=== PATIENT | male | born 1950 | race Caucasian/White ===

== ENCOUNTER 2020-12-20 19:59 | Emergency (ER) | payer MEDICARE ==
--- NOTE | 2020-12-20 20:54 | EDM.PDOC ---
ED HPI GENERAL MEDICAL PROBLEM - General Chief Complaint: Abdominal Pain Stated Complaint: ABDOMINAL PAIN Time Seen by Provider: 12/20/20 20:14 Source of Information: Reports: Patient History Limitations: Reports: No Limitations - History of Present Illness INITIAL COMMENTS - FREE TEXT/NARRATIVE: 70-year-old male presents the emergency department with complaints of abdominal pain. Patient states that he sneezed hard twice and then developed left lateral abdominal pain just below his rib area. He states that now whenever he coughs or sneezes he has severe pain to the area. Left Abdominal Pain Score (Numeric/FACES): 10 - Related Data Allergies Allergy/AdvReac Type Severity Reaction Status Date / Time No Known Allergies Allergy Verified 12/20/20 20:16 Home Meds: Home Meds Clopidogrel Bisulfate [Plavix] 75 mg PO DAILY 12/20/20 [History] Metoprolol Succinate 25 mg PO DAILY 12/20/20 [History] atorvaSTATin Calcium [Lipitor] 40 mg PO DAILY 12/20/20 [History] Past Medical History HEENT History: Reports: Hard of Hearing Cardiovascular History: Reports: High Cholesterol, Hypertension, Stents Other Cardiovascular History: 3 stents & right carotid endarectomy Other Gastrointestinal History: inguinal hernia Endocrine/Metabolic History: Reports: Obesity/BMI 30+ Oncologic (Cancer) History: Reports: Squamous Cell Carcinoma Other Oncologic History: SCC removed from right leg and left arm - Infectious Disease History Infectious Disease History: Reports: Shingles - Past Surgical History GI Surgical History: Reports: Colonoscopy Musculoskeletal Surgical History: Reports: Shoulder Surgery Other Musculoskeletal Surgeries/Procedures:: laminectomy L5-S1, bilat rotator cuff repairs Social & Family History - Tobacco Use Tobacco Use Status *Q: Former Tobacco User Used Tobacco, but Quit: Yes Month/Year Tobacco Last Used: 06/2013 - Caffeine Use Caffeine Use: Reports: Coffee, Soda, Tea - Recreational Drug Use Recreational Drug Use: No ED ROS GENERAL - Review of Systems Review Of Systems: Comprehensive ROS is negative, except as noted in HPI. ED EXAM, GI/ABD - Physical Exam Exam: See Below Exam Limited By: No Limitations General Appearance: Alert, WD/WN, No Apparent Distress Ears: Normal External Exam, Hearing Grossly Normal Nose: Normal Inspection Throat/Mouth: Normal Inspection, Normal Lips, Normal Voice, No Airway Compromise Head: Atraumatic Neck: Normal Inspection, Supple Respiratory/Chest: No Respiratory Distress, No Accessory Muscle Use Cardiovascular: Normal Peripheral Pulses, Regular Rate, Rhythm GI/Abdominal Exam: Normal Bowel Sounds, Soft, Non-Tender, No Distention (Male) Exam: Deferred Rectal (Males) Exam: Deferred Back Exam: Normal Inspection, Full Range of Motion Extremities: Normal Inspection Neurological: Alert, Oriented, Normal Cognition Psychiatric: Normal Affect, Normal Mood Skin Exam: Warm, Dry, Intact, Normal Color, No Rash Lymphatic: No Adenopathy Course - Vital Signs Text/Narrative:: Upon assessment, the patient has no abdominal pain or tenderness with deep palpation to any of the quadrants. When the patient flexes his abdominal muscles and his left abdominal wall is palpated he has significant discomfort. This is likely due to muscle strain in his abdominal wall muscles. No further testing is warranted and the patient will be discharged home. Last Recorded V/S: Last Vital Signs Temp 98.4 F 12/20/20 20:14 Pulse 75 12/20/20 20:14 Resp 16 12/20/20 20:14 BP 157/82 H 12/20/20 20:14 Pulse Ox 95 12/20/20 20:14 Departure - Departure Time of Disposition: 20:54 Disposition: Home, Self-Care 01 Condition: Good Clinical Impression: Abdominal wall strain Qualifiers: Encounter type: initial encounter Qualified Code(s): S39.011A - Strain of muscle, fascia and tendon of abdomen, initial encounter - Discharge Information Instructions: Muscle Strain, [id number], Pain Medicine Instructions, [id number] Referrals: PCP,Not In Area [Primary Care Provider] - Additional Instructions: You were seen in the emergency department with complaints of abdominal pain noted after sneezing and abdominal pain continuing with coughing. Evaluation in the ER revealed that it was an abdominal wall strain. He will likely be more sore over the next couple of days due to this. With any coughing or straining you may have to splint or brace that area. May use ice to the area 30 minutes at a time every 3 hours while awake. Do not use heat as this will cause more inflammation. May take Tylenol 650 mg alternating with ibuprofen 600 mg every 4 hours for the next 48 hours. Keep in mind that over the next 48 hours you were going to be more sore than what you are now. May take Sudafed per label instructions for nasal and sinus drainage. Keep in mind that this will likely dry you out and make you more thirsty. Could try taking Zyrtec or Claritin 1 tab daily for allergy relief as well. Should your condition worsen or change, do not hesitate returning to the emergency department. Sepsis Event Note (ED) - Evaluation Sepsis Screening Result: No Definite Risk - Focused Exam Vital Signs: Vital Signs Temp Pulse Resp BP Pulse Ox 12/20/20 20:14 98.4 F 75 16 157/82 H 95
== END 2020-12-20 21:05 | disposition home or self-care (01) ==
LOC: JD.ED 19:59
DX: S39.011A Strain of muscle, fascia and tendon of abdomen, initial encounter (principal); I10 Essential (primary) hypertension; E78.00 Pure hypercholesterolemia, unspecified; E66.9 Obesity, unspecified; Z68.32 Body mass index [BMI] 32.0-32.9, adult; Z87.891 Personal history of nicotine dependence; Z79.02 Long term (current) use of antithrombotics/antiplatelets; Z79.899 Other long term (current) drug therapy; X58.XXXA Exposure to other specified factors, initial encounter
CPT/HCPCS: 99283

== ENCOUNTER 2022-12-19 18:36 | Emergency (ER) | payer MEDICARE ==
[2022-12-19 18:58] LABS: BASOPHILS ABSOLUTE AUTO 0.05 K/mm3 (0.01-0.08); BASOPHILS PERCENT AUTO 0.5 % (0.1-1.2); EOSINOPHILS ABSOLUTE AUTO 0.24 K/mm3 (0.04-0.54); EOSINOPHILS PERCENT AUTO 2.2 (0.8-7.0); HEMOGLOBIN 17.3 gm/dl (13.7-17.5); IMMATURE GRAN ABSOLUTE AUTO 0.06 K/mm3 (0.00-0.10); IMMATURE GRAN PERCENT AUTO 0.5 % (<=1.0); LYMPHOCYTES ABSOLUTE AUTO 4.35 K/mm3 (1.32-3.57); LYMPHOCYTES PERCENT AUTO 39.5 % (21.8-53.1); MEAN CORPUSCULAR HEMOGLOBIN 29.5 pg (25.7-32.2); MEAN CORPUSCULAR HGB CONC 33.3 g/dl (32.2-35.5); MEAN CORPUSCULAR VOLUME 88.7 fl (79.0-92.2); MEAN PLATELET VOLUME 8.8 fl (9.4-12.3); MONOCYTES ABSOLUTE AUTO 1.84 K/mm3 (0.30-0.82); MONOCYTES PERCENT AUTO 16.7 % (5.3-12.2); NEUTROPHILS ABSOLUTE AUTO 4.47 K/mm3 (1.78-5.38); NEUTROPHILS PERCENT AUTO 40.6 % (34.0-67.9); PLATELET COUNT,PLT 238 K/mm3 (163-337); RED BLOOD CELL COUNT 5.86 M/mm3 (4.63-6.08); WHITE BLOOD CELL COUNT,WBC 11.01 K/mm3 (4.23-9.07)
[2022-12-19] MEDS ORDERED: Sodium Chloride 0.9% 10 ML Syringe FLUSH PRN (19:07)
[2022-12-19] MEDS ORDERED: Furosemide 40 MG/4 ML VIAL IVPUSH ONE (19:09)
[2022-12-19] MEDS ORDERED: Diltiazem 25 MG/5 ML SDV IVPUSH ONE (19:09)
[2022-12-19 19:23] LABS: A/G RATIO 1.1 (1-2); ALBUMIN 3.7 g/dl (3.4-5.0); ANION GAP 10.9 (5-15); BILIRUBIN TOTAL 0.6 mg/dL (0.2-1.0); BUN/CREATININE RATIO 16.2 (14-18); CREATININE 1.3 mg/dL (0.7-1.3); EST CRCL DRUG DOSING (CG) 51.15 mL/min; POTASSIUM,K 3.9 mEq/L (3.5-5.1); PROTEIN TOTAL,TP 7.2 g/dl (6.4-8.2)
[2022-12-19 19:24] LABS: SLIDE REVIEW ABNORMAL SMEAR
[2022-12-19 19:29] LABS: INR 0.98; PROTHROMBIN TIME 10.5 SECONDS (9.7-12.0)
[2022-12-20] MEDS ORDERED: Diltiazem 120 MG Cap.CD PO ONE (19:10)
== END 2022-12-19 22:05 | disposition home or self-care (01) ==
LOC: JD.ED 18:36
DX: I48.0 Paroxysmal atrial fibrillation (principal); E66.9 Obesity, unspecified; Z68.32 Body mass index [BMI] 32.0-32.9, adult; Z79.01 Long term (current) use of anticoagulants; Z79.02 Long term (current) use of antithrombotics/antiplatelets
CPT/HCPCS: 36415; 71045; 80053; 83735; 83880; 84484; 85025; 85610; 85730; 93005; 96374; 96375; 99285; J1940; J3490; 93010; 99284

== ENCOUNTER 2022-12-30 08:52 | Emergency (ER) | payer MEDICARE ==
[2022-12-30] MEDS ORDERED: Sodium Chloride 0.9% 10 ML Syringe FLUSH PRN (09:18)
[2022-12-30 09:26] LABS: BASOPHILS ABSOLUTE AUTO 0.05 K/mm3 (0.01-0.08); BASOPHILS PERCENT AUTO 0.5 % (0.1-1.2); HEMATOCRIT 53.8 % (40.1-51.0); HEMOGLOBIN 18.2 gm/dl (13.7-17.5); IMMATURE GRAN ABSOLUTE AUTO 0.04 K/mm3 (0.00-0.10); IMMATURE GRAN PERCENT AUTO 0.4 % (<=1.0); LYMPHOCYTES ABSOLUTE AUTO 3.37 K/mm3 (1.32-3.57); LYMPHOCYTES PERCENT AUTO 32.6 % (21.8-53.1); MEAN CORPUSCULAR HEMOGLOBIN 29.4 pg (25.7-32.2); MEAN CORPUSCULAR HGB CONC 33.8 g/dl (32.2-35.5); MEAN CORPUSCULAR VOLUME 86.9 fl (79.0-92.2); MEAN PLATELET VOLUME 9.4 fl (9.4-12.3); MONOCYTES ABSOLUTE AUTO 1.12 K/mm3 (0.30-0.82); MONOCYTES PERCENT AUTO 10.8 % (5.3-12.2); NEUTROPHILS ABSOLUTE AUTO 5.65 K/mm3 (1.78-5.38); NEUTROPHILS PERCENT AUTO 54.7 % (34.0-67.9); PLATELET COUNT,PLT 257 K/mm3 (163-337); RED BLOOD CELL COUNT 6.19 M/mm3 (4.63-6.08); WHITE BLOOD CELL COUNT,WBC 10.33 K/mm3 (4.23-9.07)
[2022-12-30 09:32] LABS: INR 1.03
[2022-12-30 09:34] LABS: PTT,PARTIAL THROMBOPLSTIN TIME 29.6 SECONDS (21.7-31.4)
[2022-12-30 09:46] LABS: A/G RATIO 1.1 (1-2); ALANINE AMINOTRANSFERASE,ALT 36 U/L (16-63); ALBUMIN 3.9 g/dl (3.4-5.0); ALKALINE PHOSPHATASE 91 U/L (46-116); ANION GAP 13.3 (5-15); ASPARTATE AMNIOTRANSFERASE,AST 28 U/L (15-37); BILIRUBIN TOTAL 1.1 mg/dL (0.2-1.0); BLOOD UREA NITROGEN,BUN 17 mg/dL (7-18); C-REACTIVE PROTEIN <0.2 mg/dL (<1.0); CALCIUM 9.9 mg/dL (8.5-10.1); CARBON DIOXIDE,CO2 25 mEq/L (21-32); CHLORIDE,CL 106 mEq/L (98-107); ESTIMATED GFR 81 mL/min (>60); GLUCOSE RANDOM 109 mg/dL (70-99); MAGNESIUM 1.8 mg/dL (1.8-2.4); POTASSIUM,K 4.3 mEq/L (3.5-5.1); PROTEIN TOTAL,TP 7.4 g/dl (6.4-8.2); SODIUM,NA 140 mEq/L (136-145); TROPONIN I HIGH SENSITIVITY 13 pg/mL (<=76); TSH 1.857 uIU/mL (0.358-3.74)
[2022-12-30 10:28] LABS: APPEARANCE,URINE CLEAR (Clear); BILIRUBIN,URINE NEGATIVE (Negative); COLOR,URINE YELLOW (Yellow); GLUCOSE,URINE NEGATIVE (Negative); KETONES,URINE NEGATIVE (Negative); LEUKOCYTE ESTERASE,URINE NEGATIVE (Negative); NITRITE,URINE NEGATIVE (Negative); OCCULT BLOOD,URINE NEGATIVE (Negative); PROTEIN,URINE NEGATIVE (Negative); UROBILINOGEN,URINE 0.2 (0.2-1.0)
== END 2022-12-30 11:50 | disposition home or self-care (01) ==
LOC: JD.ED 08:52
DX: R00.2 Palpitations (principal); I25.10 Atherosclerotic heart disease of native coronary artery without angina pectoris; I48.91 Unspecified atrial fibrillation; I10 Essential (primary) hypertension; E78.00 Pure hypercholesterolemia, unspecified; E66.9 Obesity, unspecified; Z68.32 Body mass index [BMI] 32.0-32.9, adult; Z79.899 Other long term (current) drug therapy; Z79.02 Long term (current) use of antithrombotics/antiplatelets; Z79.01 Long term (current) use of anticoagulants
CPT/HCPCS: 36415; 71045; 80053; 81003; 83735; 83880; 84443; 84484; 85025; 85610; 85730; 86140; 93005; 99285; J3490